=== PATIENT | male | born 2000 | race Hispanic/Latino ===

== ENCOUNTER 2020-01-28 14:51 | Inpatient (IN) | payer OTHER ==
[~2020-01-28] VITALS: Ht 177.8 cm; Wt 104.8 kg
[2020-01-28] VITALS (20 sets, daily range): BP systolic 114–162; BP diastolic 68–97
[2020-01-28] MEDS ORDERED: TETANUS/DIPHTHERIA TOXOID [ADULT] 0.5 ML VIAL IM ONE (14:59)
[2020-01-28] MEDS ORDERED: CEFAZOLIN SODIUM 1 GM VIAL ONE ×3 (15:09→17:39)
[2020-01-28] MEDS ORDERED: SODIUM CHLORIDE 0.9% 100 ML IV ONE (15:10)
[2020-01-28 15:32] LABS: BASOPHILS % (AUTO) 0.4 % (0.0-5.0); HEMATOCRIT 45.5 % (42-54); MEAN CORPUSCULAR HGB CONC 34.3 g/dL (32.0-36.0); MEAN CORPUSCULAR VOLUME 90.5 fL (80-100); MONOCYTES % (AUTO) 6.6 % (3.0-13.0); NEUTROPHILS % (AUTO) 45.6 % (40.0-77.0); PLATELET COUNT (AUTO) 240 K/uL (130-400); RED BLOOD CELL COUNT(AUTO) 5.03 MIL/uL (4.50-6.20); RED CELL DISTRIBUTION WIDTH 12.7 % (11.0-15.5); WHITE BLOOD COUNT (AUTO) 10.7 K/uL (4.8-10.8)
[2020-01-28 15:43] LABS: CARBON DIOXIDE 25 mmol/L (21-32); CHLORIDE 104 mmol/L (101-111); CREATININE 0.9 mg/dL (0.5-1.5); GLOMERULAR FILTR. RATE CALC 113 mL/min (>60); GLUCOSE,RANDOM 106 mg/dL (70-105); POTASSIUM 3.6 mmol/L (3.5-5.1); SODIUM SERUM 140 mmol/L (136-145); UREA NITROGEN, BLOOD 15 mg/dL (7-18)
[2020-01-28 15:51] LABS: PARTIAL THROMBOPLASTIN TIME 25.2 SEC (26.3-35.5)
[2020-01-28] MEDS ORDERED: ONDANSETRON HCL 4 MG/2 ML VIAL ONE ×2 (15:52→17:35)
[2020-01-28] MEDS ORDERED: MORPHINE SULFATE 4 MG/1ML SYG ONE (15:53)
[2020-01-28 15:57] LABS: ALANINE AMINOTRANSFERASE 56 U/L (12-78); ALBUMIN 4.2 g/dL (3.5-5.0); ALCOHOL, BLOOD < 3 mg/dL (0-10); ASPARTATE AMINOTRANSFERASE 38 U/L (10-37); BILIRUBIN,TOTAL 0.2 mg/dL (0.2-1.0); TOTAL PROTEIN, SERUM 7.6 g/dL (6.0-8.3)
[2020-01-28 16:00] LABS: CREATINE KINASE, TOTAL 838 U/L (21-232)
[2020-01-28 16:03] LABS: INR 0.96 (0.85-1.15); PROTHROMBIN TIME 10.4 SEC (9.6-11.6)
[2020-01-28 16:18] LABS: APPEARANCE,URINE Cloudy (CLEAR); BILIRUBIN,URINE Negative (NEGATIVE); COLOR,URINE Yellow (YELLOW); GLUCOSE, URINE (UA) Negative (NEGATIVE); KETONES,URINE Negative (NEGATIVE); LEUKOCYTE ESTERASE ,URINE Negative (NEGATIVE); NITRATE,URINE Negative (NEGATIVE); OCCULT BLOOD,URINE Negative (NEGATIVE); PH,URINE 5.5 (5.0-8.0); PROTEIN,URINE Negative (NEGATIVE)
[2020-01-28 16:27] LABS: AMPHET/METH SCREEN,URINE NEGATIVE (NEGATIVE); BARBITURATE SCREEN, URINE NEGATIVE (NEGATIVE); BENZODIAZEPINES SCREEN,URINE NEGATIVE (NEGATIVE); CANNABINOID SCREEN,URINE NEGATIVE (NEGATIVE); COCAINE SCREEN,URINE NEGATIVE (NEGATIVE); OPIATE SCREEN,URINE NEGATIVE (NEGATIVE); PHENCYCLIDINE SCREEN,URINE NEGATIVE (NEGATIVE)
[2020-01-28 16:38] LABS: BACTERIA,URINE Rare /HPF (None Seen); RBC,URINE 0-1 /HPF (0-1); SQUAMOUS EPITHELIAL CELL,UR 0-2 /HPF (0-2); WBC,URINE 0-1 /HPF (0-1)
[2020-01-28] MEDS ORDERED: ROCURONIUM 10MG/1ML SYR 10 MG/ML ML ONE (17:35)
[2020-01-28] MEDS ORDERED: FENTANYL CITRATE PF 50 MCG/1 ML 2ML VIAL ONE (17:35)
[2020-01-28] MEDS ORDERED: MIDAZOLAM HCL 1 MG/ML 2ML VIAL ONE ×2 (17:35→19:25)
[2020-01-28] MEDS ORDERED: DEXAMETHASONE SOD PHOSPHATE 10MG/ML 1ML VIAL ONE (17:35)
[2020-01-28] MEDS ORDERED: SUCCINYLCHOLINE 200MG/10ML SYR ONE (17:35)
[2020-01-28] MEDS ORDERED: PROPOFOL 10 MG/ML 20ML VIAL IV ONE (17:35)
[2020-01-28] MEDS ORDERED: LIDOCAINE PF 2% 5ML ABBOJECT ONE (17:35)
[2020-01-28] MEDS ORDERED: NITROGLYCERIN 1GM/1 INCH PACKET TD ONE (18:23)
[2020-01-28] MEDS ORDERED: ROPIVACAINE 0.5% 5MG/ML 30ML IJ ONE (18:52)
[2020-01-28] MEDS ORDERED: RACEPINEPHRINE HCL 2.25% 0.5 ML NEB SOLN ONE (19:16)
[2020-01-28] MEDS: CEFAZOLIN SODIUM 1 GM VIAL IVP SCH (22:30)
[2020-01-29] MEDS: ACETAMINOPHEN-CODEINE 300/30MG TAB PO PRN ×3 (03:15→18:36)
[2020-01-29 03:29] VITALS: BP 134/78
[2020-01-29] MEDS: CEFAZOLIN SODIUM 1 GM VIAL IVP SCH ×3 (05:55→23:08)
[2020-01-29 08:00] VITALS: BP 130/90
[2020-01-29] MEDS: MORPHINE SULFATE 2 MG/ML 1ML SYG IVP PRN ×3 (08:30→20:29)
[2020-01-29 11:33] VITALS: BP 131/96
[2020-01-29 15:40] VITALS: BP 130/86
[2020-01-29 20:43] VITALS: BP 134/88
[2020-01-30 00:05] VITALS: BP 133/90
[2020-01-30] MEDS: MORPHINE SULFATE 2 MG/ML 1ML SYG IVP PRN ×2 (00:16→06:07)
[2020-01-30 04:08] VITALS: BP 121/82
[2020-01-30] MEDS: CEFAZOLIN SODIUM 1 GM VIAL IVP SCH ×3 (06:07→21:53)
--- NOTE | 2020-01-30 07:55 | NUR ---
PATIENT ASSESSED AND DRESSING TO RIGHT HAND IS CLEAN AND DRY. PATIENT C/O HAVING SOME PAIN THE LEFT LEG AND INDICATED WAS TOLD HE MIGHT HAVE HIT SIDE RAID DURING SURGERY. PATIENT IS STABLE AND ABDOMEN IS SOFT AND STATES PASSING GAS. PIV INTACT.
[2020-01-30 08:00] VITALS: BP 93/50
[2020-01-30 12:00] VITALS: BP 127/84
[2020-01-30 16:00] VITALS: BP 125/81
--- NOTE | 2020-01-30 17:49 | NUR ---
INITIAL: Met w pt and spouse this afternoon to discuss dcp. Pt mentions that prior to admission he was independent w ambulation and ADLs. He works and drives. Pt does not own any DME or receive services. Per pt he feels safe and comfortable to return home at [place]. CM to continue to follow and wait for Md recommendations. Addendum: 01/30/20 at 1750 by RUFINO ELIZALDE Amended: Links added.
--- NOTE | 2020-01-30 18:30 | NUR ---
PATIENT C/O PAIN AND WILL BE MEDICATED WITH TYLENOL #3.
--- NOTE | 2020-01-30 19:20 | NUR ---
REPORT GIVEN TO INCOMING PACKAGING ASSOCIATE NURSE AND PATIENT CARE TRANSFERED AT THIS TIME. PATIENT IS STABLE AND DENIES ANY PAIN AT THIS TIME.
[2020-01-30 20:44] VITALS: BP 132/91
[2020-01-30] MEDS: ACETAMINOPHEN-CODEINE 300/30MG TAB PO PRN (21:53)
[2020-01-31] VITALS (27 sets, daily range): BP systolic 105–151; BP diastolic 45–99
[2020-01-31] MEDS: CEFAZOLIN SODIUM 1 GM VIAL IVP SCH ×2 (06:24→15:19)
--- NOTE | 2020-01-31 13:40 | NUR ---
OUT UNIT VIA BED TRANSPORTED TO OR
[2020-01-31] MEDS ORDERED: DEXAMETHASONE SOD PHOSPHATE 10MG/ML 1ML VIAL ONE ×2 (13:53→13:56)
[2020-01-31] MEDS ORDERED: ONDANSETRON HCL 4 MG/2 ML VIAL ONE (13:53)
[2020-01-31] MEDS ORDERED: GLYCOPYRROLATE 1 MG/5 ML SYRINGE ONE (13:53)
[2020-01-31] MEDS ORDERED: PROPOFOL 10 MG/ML 20ML VIAL IV ONE (13:53)
[2020-01-31] MEDS ORDERED: LIDOCAINE PF 2% 5ML ABBOJECT ONE (13:53)
[2020-01-31] MEDS ORDERED: SUCCINYLCHOLINE 200MG/10ML SYR ONE (13:53)
[2020-01-31] MEDS ORDERED: NEOSTIGMINE 5MG/5ML SYR IV ONE (13:53)
[2020-01-31] MEDS ORDERED: MIDAZOLAM HCL 1 MG/ML 2ML VIAL ONE (13:53)
[2020-01-31] MEDS ORDERED: FENTANYL CITRATE PF 50 MCG/1 ML 2ML VIAL ONE ×2 (13:54→15:48)
[2020-01-31] MEDS ORDERED: ROCURONIUM 10MG/1ML SYR 10 MG/ML ML ONE (13:54)
[2020-01-31] MEDS ORDERED: LACTATED RINGERS 1000ML 1,000 ML IV ONE (14:03)
[2020-01-31] MEDS ORDERED: CEFAZOLIN SODIUM 1 GM VIAL IVP ONE (15:30)
[2020-01-31] MEDS ORDERED: CEFAZOLIN SODIUM 1 GM VIAL ONE (15:55)
[2020-01-31] MEDS ORDERED: NITROGLYCERIN 1GM/1 INCH PACKET TD ONE ×2 (16:00→16:03)
[2020-01-31] MEDS: MORPHINE SULFATE 2 MG/ML 1ML SYG IVP PRN (16:54)
--- NOTE | 2020-01-31 17:05 | NUR ---
REPORT RECEIVED S/P POST-OP PATIENT S/P APPLICATION OF EXTERAL FIXATOR TO THE RIGHT THUMB BY DR DELACRUZ, VS B/P 125/82, P 77 , R 18, O2 SATS 98 % ON ROOM AIR A& O X4 WILL BE IN PACU ABOUT 15 MORE MINUTES , FAMILY IN ROOM NOTIFIED
[2020-01-31] MEDS: ACETAMINOPHEN-CODEINE 300/30MG TAB PO PRN (19:05)
--- NOTE | 2020-01-31 19:15 | NUR ---
Round note: Pt was in bed fully awake and responsive.Ambulatory. AOX4. Significant other at bedside. Has Sling support to right arm. Dressing to right hand clean , dry and intact. No more IV site seen at this time. Base on day shift report PIV site was leaking. On conitnued post op VS and to go home after as ordered by Dr. Mays. Denies discomfort. Verbalized he cannot wait to go home. No apparent distress noted.
--- NOTE | 2020-01-31 22:00 | NUR ---
Discharge note: Discharge instructions given. Agreed and verbalized understanding. Questions entertained. Pt ambulatory. No complaints of pain. Latest VS are as follows: BP: 124/79 ; HR: 72 ; RR: 20 ; Temp" 98.2 and O2Sat at 96%, room air. Diet given tolerated. Distress / discomfort not noted. Needs attended and cared for. Discharge to home ambulatory. Pt. noted to be very happy.
== END 2020-01-31 22:10 | disposition home or self-care (01) | DRG 909 ==
LOC: EDH 14:51 → EDHIP 15:51 → 3CH 20:30
PROVIDERS: ADMIT Surgery Plastic and Reconstructive Surgery; ATTEND Surgery Plastic and Reconstructive Surgery
PROC: 0PBR0ZZ Excision of Right Thumb Phalanx, Open Approach (ICD-10-PCS; principal; 2020-01-28 17:41)
PROC: 0PH Upper Bones, Insertion (ICD-10-PCS; 2020-01-31)
DX: S68.011A Complete traumatic metacarpophalangeal amputation of right thumb, initial encounter (principal); Y93.89 Activity, other specified; Y92.89 Other specified places as the place of occurrence of the external cause; Y99.8 Other external cause status
CPT/HCPCS: 36415; 73130; 73140; 80053; 80305; 81001; 82550; 85025; 85610; 85730; 86850; 86900; 86901; 90714; 93005; 94640; 99291; A4565; A4606; C1713; G0378; J0330; J0690; J1100; J2001; J2250; J2270; J2405; J2704; J2710; J2795; J3010; J3490; J7030; J7120